=== PATIENT | female | born 1995 | race Caucasian/White ===

== ENCOUNTER 2017-06-11 02:24 | Observation (INO) | payer SELFPAY ==
[~2017-06-11] VITALS: Ht 162.6 cm; Wt 61.4 kg
[~2017-06-11 02:24] MED LIST: APIX5TAB PO; HYDR-3516 PO
[2017-06-11 02:26] VITALS: BP 119/77; PULSE 84; RESP 16; TEMP 98.1; O2SAT 100
[2017-06-11] MEDS ORDERED: MORPHINE SULFATE 4 MG/ML INJ IV PUSH ONE (02:45)
[2017-06-11 03:07] LABS: AUTOMATED NEUTROPHIL # 3.9 TH/MM3 (1.8-7.7); BASOPHIL % 0.5 % (0.0-2.0); EOSINOPHIL # 0.1 TH/MM3 (0-0.4); EOSINOPHIL % 1.4 % (0.0-4.0); HEMO FLAGS DIFF FINAL; LYMPHOCYTE # 3.4 TH/MM3 (1.0-4.8); MEAN CELL VOLUME 86.1 FL (80.0-100.0); MEAN CORPUSCULAR HEMOGLOBIN 28.7 PG (27.0-34.0); MEAN CORPUSCULAR HGB CONC 33.3 % (32.0-36.0); MONO % 7.3 % (0.0-8.0); NEUT % 48.8 % (16.0-70.0); PLATELET COUNT 284 TH/MM3 (150-450); RED BLOOD COUNT 3.94 MIL/MM3 (4.00-5.30); RED CELL DISTRIBUTION WIDTH 13.3 % (11.6-17.2)
[2017-06-11 03:24] LABS: APTT (PATIENT) 28.9 SEC (24.3-30.1); PROTHROMBIN TIME - PATIENT 10.6 SEC (9.8-11.6)
[2017-06-11 03:43] LABS: ALT (GPT) 22 U/L (10-53); ANION GAP 7 MEQ/L (5-15); AST (GOT) 17 U/L (15-37); BICARBONATE 26.1 MEQ/L (21.0-32.0); BLOOD UREA NITROGEN 12 MG/DL (7-18); CHLORIDE 105 MEQ/L (98-107); GLOMERULAR FILTRATION RATE 117 ML/MIN (>89); POTASSIUM 3.7 MEQ/L (3.5-5.1); SODIUM (NA) 138 MEQ/L (136-145)
[2017-06-11 03:46] LABS: ALKALINE PHOSPHATASE 64 U/L (45-117); TOTAL BILIRUBIN ADULT 0.2 MG/DL (0.2-1.0)
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
--- NOTE | 2017-06-11 04:11 | RADRPT ---
EXAM DATE/TIME: 06/11/2017 03:21 [place] COMPARISON: No previous studies available for comparison. INDICATIONS : Right leg swelling. MEDICAL HISTORY : Anticoagulant therapy. Asthma. Pulmonary embolism. Colby-danlos syndrome. SURGICAL HISTORY : None. ENCOUNTER: Initial ACUITY: 2 months PAIN SCORE: 4/10 LOCATION: Right leg. TECHNIQUE: Venous ultrasound of the leg was performed from the inguinal ligament to the proximal calf. Real-luis e, color Doppler and spectral tracing, compression and augmentation techniques were used. FINDINGS: There is normal compressibility of the deep venous system from the inguinal region to the proximal ca lf. No echogenic clot is seen in the lumen of the common femoral, femoral, popliteal, and posterior tibial veins. There is a normal response of the venous system to proximal and distal augmentation an d respiration. CONCLUSION: Negative exam. No sonographic or Doppler findings of deep venous thrombosis. Melo Duong MD on June 11, 2017 at 4:09 Board Certified Radiologist. This report was verified electronically.
[2017-06-11] MEDS ORDERED: BISACODYL 10 MG SUPP RECTAL PRN (05:15)
[2017-06-11] MEDS ORDERED: ONDANSETRON HCL 4 MG/2 ML VIAL IVP PRN (05:15)
[2017-06-11] MEDS ORDERED: SENNOSIDES 8.6 MG TAB PO PRN (05:15)
[2017-06-11] MEDS ORDERED: ACETAMINOPHEN/HYDROcodone 325 MG/5 MG TAB PO PRN (05:15)
[2017-06-11] MEDS ORDERED: SODIUM CHLORIDE 0.9% FLUSH 10 ML FLUSH IV FLUSH PRN (05:15)
[2017-06-11] MEDS ORDERED: MAGNESIUM HYDROXIDE SUSP 30 ML CUP PO PRN (05:15)
[2017-06-11] MEDS ORDERED: MORPHINE SULFATE 4 MG/ML INJ IV PUSH PRN (05:15)
[2017-06-11] MEDS ORDERED: ACETAMINOPHEN 325 MG TAB PO PRN (05:15)
[2017-06-11] MEDS ORDERED: LACTULOSE SYRUP 20 GM/30 ML CUP PO PRN (05:15)
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
[2017-06-11 07:25] VITALS: BP 103/59; PULSE 68; RESP 15; TEMP 98.4; O2SAT 100
[2017-06-11] MEDS ORDERED: APIXABAN 5 MG TABLET PO SCH (09:00)
[2017-06-11] MEDS ORDERED: DOCUSATE SODIUM 50 MG/SENNA 8.6 MG TAB PO SCH (09:00)
[2017-06-11] MEDS ORDERED: SODIUM CHLORIDE 0.9% FLUSH 10 ML FLUSH IV FLUSH SCH (09:00)
--- NOTE | 2017-06-11 09:10 | EKG ---
Date Performed: 06/11/2017 Time Performed: 02:33:10 PTAGE: 21 years EKG: Sinus rhythm NORMAL ECG NO PREVIOUS TRACING DOCTOR: Cornelio Simpson Interpretating Date/Time 06/11/2017 09:08:07
[2017-06-11 10:15] VITALS: BP 112/56; PULSE 80; RESP 15; TEMP 98.3; O2SAT 100
--- NOTE | 2017-06-11 11:52 | MB ---
cc: USAMA MORENO DATE OF CONSULTATION: 06/11/2017. REASON FOR CONSULTATION: Right leg swelling. Evaluation for compartment syndrome. HISTORY OF PRESENT ILLNESS: 21-year-old female with past history of Colby-Danlos Syndrome and history of a right calf muscle tear approximately two months ago. From this injury she sustained a DVT and pulmonary embolism. She is currently on Eliquis. She had a trip and fall injury yesterday while ambulating on crutches with increased pain and swelling in the right calf. She developed subsequently a hematoma. She initially went to [facility] and I was contacted by the emergency room physician there as he had concerns of possible development of compartment syndrome. He requested a transfer to [facility] for monitoring and evaluation to which I agreed. The patient has been transferred to the [facility] and is currently in the holding pod under surveillance at this point. She states the swelling of her calf has stabilized since the injury and has not significantly worsened. She currently denies numbness or tingling of her toes. PAST MEDICAL HISTORY: 1. Colby-Danlos Syndrome. 2. History of a right calf muscle tear. 3. History of DVT. 4. Pulmonary embolism. ALLERGIES: 1. ALBUTEROL. 2. AZITHROMYCIN. MEDICATIONS: 1. Eliquis. FAMILY HISTORY: Reviewed. No diabetes or heart disease. SOCIAL HISTORY: Nonsmoker and non-drinker. Does not use drugs. REVIEW OF SYSTEMS: A twelve-point review of systems is negative other than the history of present illness. PHYSICAL EXAMINATION: VITAL SIGNS: Temperature 98, pulse 84, respirations 16, blood pressure 119/77. GENERAL: In general, the patient is awake and alert and lying in bed in no acute distress. HEAD, EYES, EARS, NOSE, THROAT: Normocephalic and atraumatic. Pupils round and reactive to light. Extraocular muscles intact. NECK: The neck is supple. LUNGS: Clear. HEART: Regular rate and rhythm. ABDOMEN: Abdomen soft and nontender. EXTREMITIES: Right leg has slight swelling of the calf. Her compartments are soft. She can flex and extend her ankles actively as well as passive examination without evidence of significant pain. She has 2+ dorsalis pedis pulse and 2+ posterior tibialis pulses. Sensation intact distally. IMPRESSION: 1. A 21-year-old female with history of Colby-Danlos Syndrome, history of right calf muscle tear with DVT and pulmonary embolism on Eliquis. She had a fall yesterday with increased pain, swelling, bruising, ecchymosis, hematoma of the right calf but no evidence of compartment syndrome. Of note, a Doppler examination is negative for DVT. PLAN: I discussed the diagnosis with the patient. I would recommend discharge planning, ice, elevation, protective weightbearing status with crutches. All questions have been answered. MD ANNE MARIE Severino/ANDREW /9:28 AM /11:37 AM
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
== END 2017-06-11 13:46 | disposition home or self-care (01) ==
LOC: NEPC 02:24 → NEDA 05:08 → NEPHCDU 06:38
PROVIDERS: ADMIT Internal Medicine; ATTEND Internal Medicine
DX: I82.4Z1 Acute embolism and thrombosis of unspecified deep veins of right distal lower extremity (principal); Q79.6 Ehlers-Danlos syndromes; J45.909 Unspecified asthma, uncomplicated; Z79.01 Long term (current) use of anticoagulants
CPT/HCPCS: 80053; 85025; 85610; 85730; 93005; 93971; 96374; 99285; G0378; J2270; 99281

== ENCOUNTER 2017-07-21 20:56 | Observation (INO) | payer OTHER ==
[~2017-07-21] VITALS: Ht 162.6 cm; Wt 60.0 kg
[2017-07-21 20:57] VITALS: BP 134/75; PULSE 98; RESP 16; TEMP 98; O2SAT 100
[2017-07-21 21:25] VITALS: BP 133/77; PULSE 101; RESP 16; O2SAT 97
[2017-07-21] MEDS ORDERED: MULTTAB67 PO (21:25)
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
[2017-07-21] MEDS ORDERED: SODIUM CHLORIDE 0.9% FLUSH 10 ML FLUSH IV FLUSH PRN ×2 (22:00→23:45)
[2017-07-21 22:50] LABS: BILIRUBIN, URINE NEG (NEG); BLOOD, URINE NEG (NEG); GLUCOSE,URINE NEG (NEG); KETONE, URINE NEG (NEG); NITRITE,URINE NEG (NEG); URINE COLOR COLORLESS (YELLW/STRAW); URINE LEUKOCYTE ESTERASE NEG (NEG)
[2017-07-21 22:54] LABS: AUTOMATED NEUTROPHIL # 3.2 TH/MM3 (1.8-7.7); BASOPHIL % 0.5 % (0.0-2.0); EOSINOPHIL # 0.1 TH/MM3 (0-0.4); EOSINOPHIL % 1.4 % (0.0-4.0); HEMATOCRIT 34.8 % (35.0-46.0); HEMOGLOBIN 11.5 GM/DL (11.6-15.3); LYMPHOCYTE # 2.2 TH/MM3 (1.0-4.8); MEAN CELL VOLUME 86.2 FL (80.0-100.0); MEAN CORPUSCULAR HEMOGLOBIN 28.6 PG (27.0-34.0); MEAN CORPUSCULAR HGB CONC 33.2 % (32.0-36.0); MONO % 8.9 % (0.0-8.0); MONOCYTE # 0.5 TH/MM3 (0-0.9); NEUT % 53.2 % (16.0-70.0); PLATELET COUNT 264 TH/MM3 (150-450); RED BLOOD COUNT 4.03 MIL/MM3 (4.00-5.30); RED CELL DISTRIBUTION WIDTH 13.6 % (11.6-17.2)
[2017-07-21 22:58] LABS: PROTHROMBIN TIME - PATIENT 11.1 SEC (9.8-11.6)
[2017-07-21 23:07] LABS: ALBUMIN 3.9 GM/DL (3.4-5.0); ALT (GPT) 22 U/L (10-53); AST (GOT) 20 U/L (15-37); BICARBONATE 26.9 MEQ/L (21.0-32.0); BLOOD UREA NITROGEN 10 MG/DL (7-18); CALCIUM 8.7 MG/DL (8.5-10.1); CHLORIDE 105 MEQ/L (98-107); CREATININE 0.62 MG/DL (0.50-1.00); GLOMERULAR FILTRATION RATE 122 ML/MIN (>89); GLUCOSE,RANDOM 91 MG/DL (74-106); LIPASE 157 U/L (73-393); SODIUM (NA) 139 MEQ/L (136-145)
[2017-07-21 23:09] LABS: ALKALINE PHOSPHATASE 70 U/L (45-117); TOTAL BILIRUBIN ADULT 0.2 MG/DL (0.2-1.0); TOTAL PROTEIN 7.9 GM/DL (6.4-8.2)
--- NOTE | 2017-07-21 23:44 | HHI.HP ---
[facility] No Primary Care Physician Admission Diagnosis gi bleed on eliquis Diagnoses: (1) Rectal bleeding Diagnosis: Principal (2) H/O deep venous thrombosis Diagnosis: Principal (3) Hypokalemia (4) Colby-Danlos syndrome Diagnosis: Principal Travel History International Travel<30 Days: No Contact w/Intl Traveler <30 Da: No Traveled to Known Affected Are: No History of Present Illness This is a 22-year-old female with a PMH of Colby-Danlos Syndrome, Asthma and h/ o DVT on Eliquis who presented to the ER w/ complaints of rectal bleeding. States has been having abdominal pain x2-3 days, intermittent, no associated nausea or vomiting, but reports some diarrhea. Today, w/ bloody bowel movement , noted large amount of blood in toilet and blood after wiping. No h/o similar symptoms. On arrival, BP 1:30/75, HR 98, O2 sat 100% on RA, Afebrile. CBC unremarkable. Hemoglobin 11.5, previously 11.3 on 06/11/17. Chemistry unremarkable except for K+ 3.4. INR 1.0. UA negative. Review of Systems Except as stated in HPI: all other systems reviewed are Neg ROS: 14 point review of systems otherwise negative. Past Family Social History Past Medical History PMH: Colby-Danlos Syndrome, Asthma and h/o DVT on Eliquis Past Surgical History PAST SURGICAL HISTORY: None Allergies: Coded Allergies: albuterol (Verified Allergy, Severe, 07/21/17) azithromycin (Verified Allergy, Severe, 07/21/17) fluticasone (Verified Allergy, Unknown, 07/21/17) Family History PAST FAMILY HISTORY: Reviewed. No h/o DM or CAD Social History PAST SOCIAL HISTORY: Negative for alcohol, tobacco or drugs. Physical Exam Vital Signs Vital Signs Date Time Temp Pulse Resp B/P (MAP) Pulse Ox O2 Delivery O2 Flow Rate FiO2 07/21/17 21:25 101 16 133/77 (95) 97 Room Air 07/21/17 20:57 98.0 98 16 134/75 (94) 100 Room Air Physical Exam PE: GENERAL: Young white female in no acute distress. HEENT: PERRLA, EOMI. No scleral icterus or conjunctival pallor. No lid lag or facial droop. CARDIOVASCULAR: Regular rate and rhythm. No obvious murmurs to auscultation. No chest tenderness to palpation. RESPIRATORY: No obvious rhonchi or wheezing. Clear to auscultation. Breath sounds equal bilaterally. GASTROINTESTINAL: Abdomen soft, mild tenderness to palpation, nondistended. BS normal. MUSCULOSKELETAL: Extremities without clubbing, cyanosis, or edema. No obvious deformities. NEUROLOGICAL: Awake, alert and oriented x4. No focal neurologic deficits. Moving both upper and lower extremities spontaneously. Laboratory Laboratory Tests Test 07/21/17 22:14 07/21/17 22:16 White Blood Count 6.0 Red Blood Count 4.03 Hemoglobin 11.5 Hematocrit 34.8 Mean Corpuscular Volume 86.2 Mean Corpuscular Hemoglobin 28.6 Mean Corpuscular Hemoglobin Concent 33.2 Red Cell Distribution Width 13.6 Platelet Count 264 Mean Platelet Volume 8.0 Neutrophils (%) (Auto) 53.2 Lymphocytes (%) (Auto) 36.0 Monocytes (%) (Auto) 8.9 Eosinophils (%) (Auto) 1.4 Basophils (%) (Auto) 0.5 Neutrophils # (Auto) 3.2 Lymphocytes # (Auto) 2.2 Monocytes # (Auto) 0.5 Eosinophils # (Auto) 0.1 Basophils # (Auto) 0.0 CBC Comment DIFF FINAL Differential Comment Prothrombin Time 11.1 Prothromb Time International Ratio 1.0 Activated Partial Thromboplast Time 30.3 Blood Urea Nitrogen 10 Creatinine 0.62 Random Glucose 91 Total Protein 7.9 Albumin 3.9 Calcium Level 8.7 Alkaline Phosphatase 70 Aspartate Amino Transf (AST/SGOT) 20 Alanine Aminotransferase (ALT/SGPT) 22 Total Bilirubin 0.2 Sodium Level 139 Potassium Level 3.4 Chloride Level 105 Carbon Dioxide Level 26.9 Anion Gap 7 Estimat Glomerular Filtration Rate 122 Lipase 157 Urine Color COLORLESS Urine Turbidity CLEAR Urine pH 6.0 Urine Specific [place] 1.002 Urine Protein NEG Urine Glucose (UA) NEG Urine Ketones NEG Urine Occult Blood NEG Urine Nitrite NEG Urine Bilirubin NEG Urine Urobilinogen LESS THAN 2.0 Urine Leukocyte Esterase NEG Urine RBC LESS THAN 1 Microscopic Urinalysis Comment CULT NOT INDICATED Result Diagram: 07/21/17221307/21/172213 Caprini VTE Risk Assessment Caprini VTE Risk Assessment: Mod/High Risk (score >= 2) Caprini Risk Assessment Model Point Value = 1 Point Value = 2 Point Value = 3 Point Value = 5 Age 41-60 Minor surgery BMI > 25 kg/m2 Swollen legs Varicose veins or History of unexplained or recurrent spontaneous Oral contraceptives or hormone replacement Sepsis (< 1 month) Serious lung disease, including pneumonia (< 1 month) Abnormal pulmonary function Acute myocardial infarction Congestive heart failure (< 1 month) History of inflammatory bowel disease Medical patient at bed rest Age 61-74 Arthroscopic surgery Major open surgery (> 45 min) Laparoscopic surgery (> 45 min) Malignancy Confined to bed (> 72 hours) Immobilizing plaster cast Central venous access Age >= 75 History of VTE Family history of VTE Factor V Leiden Prothrombin [id number] Lupus anticoagulant Anticardiolipin antibodies Elevated serum homocysteine Heparin-induced thrombocytopenia Other congenital or acquired thrombophilia Stroke (< 1 month) Elective arthroplasty Hip, pelvis, or leg fracture Acute spinal cord injury (< 1 month) Prophylaxis Regimen Total Risk Factor Score Risk Level Prophylaxis Regimen 0-1 Low Early ambulation 2 Moderate Order ONE of the following: *Sequential Compression Device (SCD) *Heparin 5000 units SQ BID 3-4 Higher Order ONE of the following medications: *Heparin 5000 units SQ TID *Enoxaparin/Lovenox 40 mg SQ daily (WT < 150 kg, CrCl > 30 mL/min) *Enoxaparin/Lovenox 30 mg SQ daily (WT < 150 kg, CrCl > 10-29 mL/min) *Enoxaparin/Lovenox 30 mg SQ BID (WT < 150 kg, CrCl > 30 mL/min) AND/OR *Sequential Compression Device (SCD) 5 or more Highest Order ONE of the following medications: *Heparin 5000 units SQ TID (Preferred with Epidurals) *Enoxaparin/Lovenox 40 mg SQ daily (WT < 150 kg, CrCl > 30 mL/min) *Enoxaparin/Lovenox 30 mg SQ daily (WT < 150 kg, CrCl > 10-29 mL/min) *Enoxaparin/Lovenox 30 mg SQ BID (WT < 150 kg, CrCl > 30 mL/min) AND *Sequential Compression Device (SCD) Assessment and Plan Problem List: (1) Rectal bleeding ICD Code: K62.5 - Hemorrhage of anus and rectum (2) H/O deep venous thrombosis ICD Code: Z86.718 - Personal history of other venous thrombosis and embolism (3) Hypokalemia ICD Code: E87.6 - Hypokalemia (4) Colby-Danlos syndrome ICD Code: Q79.6 - Colby-Danlos syndrome Assessment and Plan A/P: 1. Rectal Bleeding: c/o abdominal pain x2-3 days w/ occasional diarrhea, now w / acute onset of bloody bowel movement, likely secondary to mild colitis. Hgb stable at 11.5, previously 11.3 on 06/11/17. Repeat Hgb/Hct as on Eliquis. 2. H/o DVT: on Eliquis, will resume if repeat Hgb stable. 3. Hypokalemia: Mild. K+ 3.4. Will recheck and replace as needed. 4. Colby-Danlos Syndrome: Stable. 5. DVT Prophylaxis: On Eliquis 6. Social work for d/c planning as needed. 7. Case discussed w/ ER physician at length. Lolita Silverman MD Jul 21, 2017 23:44
[2017-07-21] MEDS ORDERED: ONDANSETRON HCL 4 MG/2 ML VIAL IVP PRN (23:45)
[2017-07-21] MEDS ORDERED: ACETAMINOPHEN/HYDROcodone 325 MG/5 MG TAB PO PRN (23:45)
[2017-07-21] MEDS ORDERED: SENNOSIDES 8.6 MG TAB PO PRN (23:45)
[2017-07-21] MEDS ORDERED: ACETAMINOPHEN 325 MG TAB PO PRN (23:45)
[2017-07-21] MEDS ORDERED: ACETAMINOPHEN/HYDROcodone 325 MG/10 MG TAB PO PRN (23:45)
[2017-07-21] MEDS ORDERED: BISACODYL 10 MG SUPP RECTAL PRN (23:45)
[2017-07-21] MEDS ORDERED: LACTULOSE SYRUP 20 GM/30 ML CUP PO PRN (23:45)
[2017-07-21] MEDS ORDERED: MAGNESIUM HYDROXIDE SUSP 30 ML CUP PO PRN (23:45)
[2017-07-21] MEDS ORDERED: IOHEXOL 350 MG/ML 10 ML VIAL (for RAD DIAG) IVCONTRAST ONE (23:45)
[2017-07-21 23:58] VITALS: BP 108/66; PULSE 81; RESP 16; O2SAT 100
[2017-07-21 23:59] VITALS: O2SAT 100
[2017-07-22 01:03] VITALS: BP 113/67; PULSE 79; RESP 18; TEMP 98.2; O2SAT 100
[2017-07-22 03:39] VITALS: BP 104/52; PULSE 82; RESP 18; TEMP 98.2; O2SAT 97
--- NOTE | 2017-07-22 05:58 | PD ---
Data Data Last Documented VS Vital Signs Date Time Temp Pulse Resp B/P (MAP) Pulse Ox O2 Delivery O2 Flow Rate FiO2 07/21/17 21:25 101 16 133/77 (95) 97 Room Air 07/21/17 20:57 98.0 Orders Orders Complete Blood Count With Diff (07/21/17 21:53) Comprehensive Metabolic Panel (07/21/17 21:53) Lipase (07/21/17 21:53) Prothrombin Time / Inr (Pt) (07/21/17 21:53) Act Partial Throm Time (Ptt) (07/21/17 21:53) Urinalysis - C+S If Indicated (07/21/17 21:53) Iv Access Insert/Monitor (07/21/17 21:53) Ecg Monitoring (07/21/17 21:53) Oximetry (07/21/17 21:53) Sodium Chloride 0.9% Flush (Ns Flush) (07/21/17 22:00) Admit Order (Ed Use Only) (07/21/17 23:43) Labs Laboratory Tests Test 07/21/17 22:14 07/21/17 22:16 White Blood Count 6.0 TH/MM3 Red Blood Count 4.03 MIL/MM3 Hemoglobin 11.5 GM/DL Hematocrit 34.8 % Mean Corpuscular Volume 86.2 FL Mean Corpuscular Hemoglobin 28.6 PG Mean Corpuscular Hemoglobin Concent 33.2 % Red Cell Distribution Width 13.6 % Platelet Count 264 TH/MM3 Mean Platelet Volume 8.0 FL Neutrophils (%) (Auto) 53.2 % Lymphocytes (%) (Auto) 36.0 % Monocytes (%) (Auto) 8.9 % Eosinophils (%) (Auto) 1.4 % Basophils (%) (Auto) 0.5 % Neutrophils # (Auto) 3.2 TH/MM3 Lymphocytes # (Auto) 2.2 TH/MM3 Monocytes # (Auto) 0.5 TH/MM3 Eosinophils # (Auto) 0.1 TH/MM3 Basophils # (Auto) 0.0 TH/MM3 CBC Comment DIFF FINAL Differential Comment Prothrombin Time 11.1 SEC Prothromb Time International Ratio 1.0 RATIO Activated Partial Thromboplast Time 30.3 SEC Blood Urea Nitrogen 10 MG/DL Creatinine 0.62 MG/DL Random Glucose 91 MG/DL Total Protein 7.9 GM/DL Albumin 3.9 GM/DL Calcium Level 8.7 MG/DL Alkaline Phosphatase 70 U/L Aspartate Amino Transf (AST/SGOT) 20 U/L Alanine Aminotransferase (ALT/SGPT) 22 U/L Total Bilirubin 0.2 MG/DL Sodium Level 139 MEQ/L Potassium Level 3.4 MEQ/L Chloride Level 105 MEQ/L Carbon Dioxide Level 26.9 MEQ/L Anion Gap 7 MEQ/L Estimat Glomerular Filtration Rate 122 ML/MIN Lipase 157 U/L Urine Color COLORLESS Urine Turbidity CLEAR Urine pH 6.0 Urine Specific [place] 1.002 Urine Protein NEG mg/dL Urine Glucose (UA) NEG mg/dL Urine Ketones NEG mg/dL Urine Occult Blood NEG Urine Nitrite NEG Urine Bilirubin NEG Urine Urobilinogen LESS THAN 2.0 MG/DL Urine Leukocyte Esterase NEG Urine RBC LESS THAN 1 /hpf Microscopic Urinalysis Comment CULT NOT INDICATED MDM Supervised Visit with YAMEL: Yes Narrative Course The history, exam, and medical decision-making in the associated midlevel provider note were completed with my assistance. I reviewed and agree with the findings presented. I attest that I had a [id number] encounter with the patient on the same day, and personally performed and documented my assessment and findings in the medical record. *My assessment and Findings: This is a 22-year-old female who is on Eliquis for history of DVT who presents to the emergency department with diarrhea and blood in her stool. She was placed on a monitor and an IV was established. She is mildly tachycardic. Labs are reassuring. Patient will be placed in observation for serial hemoglobins in the setting of being on anticoagulation. I suspect her bleeding is just secondary to viral syndrome. Shahnaz Martinez MD Jul 22, 2017 05:58
[2017-07-22 07:30] LABS: AUTOMATED NEUTROPHIL # 3.2 TH/MM3 (1.8-7.7); BASOPHIL % 0.4 % (0.0-2.0); EOSINOPHIL # 0.1 TH/MM3 (0-0.4); EOSINOPHIL % 1.4 % (0.0-4.0); HEMATOCRIT 30.8 % (35.0-46.0); HEMOGLOBIN 10.4 GM/DL (11.6-15.3); LYMPH % 35.9 % (9.0-44.0); LYMPHOCYTE # 2.1 TH/MM3 (1.0-4.8); MEAN CELL VOLUME 86.1 FL (80.0-100.0); MEAN CORPUSCULAR HEMOGLOBIN 29.2 PG (27.0-34.0); MEAN CORPUSCULAR HGB CONC 33.9 % (32.0-36.0); MEAN PLATELET VOLUME 7.7 FL (7.0-11.0); MONO % 9.1 % (0.0-8.0); MONOCYTE # 0.5 TH/MM3 (0-0.9); NEUT % 53.2 % (16.0-70.0); PLATELET COUNT 227 TH/MM3 (150-450); RED BLOOD COUNT 3.58 MIL/MM3 (4.00-5.30); RED CELL DISTRIBUTION WIDTH 13.6 % (11.6-17.2)
[2017-07-22 07:39] VITALS: BP 105/59; PULSE 78; RESP 16; TEMP 97.7; O2SAT 99
[2017-07-22 08:02] LABS: ALBUMIN 3.2 GM/DL (3.4-5.0); ALKALINE PHOSPHATASE 53 U/L (45-117); ALT (GPT) 21 U/L (10-53); AST (GOT) 14 U/L (15-37); BICARBONATE 23.9 MEQ/L (21.0-32.0); BLOOD UREA NITROGEN 7 MG/DL (7-18); CALCIUM 8.9 MG/DL (8.5-10.1); CHLORIDE 108 MEQ/L (98-107); CREATININE 0.56 MG/DL (0.50-1.00); GLOMERULAR FILTRATION RATE 135 ML/MIN (>89); GLUCOSE,RANDOM 88 MG/DL (74-106); SODIUM (NA) 139 MEQ/L (136-145); TOTAL BILIRUBIN ADULT 0.1 MG/DL (0.2-1.0); TOTAL PROTEIN 6.4 GM/DL (6.4-8.2)
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
[2017-07-22] MEDS: SODIUM CHLORIDE 0.9% FLUSH 10 ML FLUSH IV FLUSH SCH ×2 (10:00→23:11)
[2017-07-22] MEDS: PANTOPRAZOLE SOD 40 MG DELAYED RELEASE TAB PO SCH (10:00)
[2017-07-22] MEDS: DOCUSATE SODIUM 50 MG/SENNA 8.6 MG TAB PO SCH ×2 (10:00→21:00)
[2017-07-22] MEDS: SODIUM CHLOR 0.9% 1000 ML INJ 1,000 ML IV SCH ×3 (10:01→22:36)
[2017-07-22] MEDS: MULTIVITAMIN TAB PO SCH (10:01)
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
[2017-07-22] MEDS ORDERED: DIATRIZOATE MEGLUM/DIATRIZOATE SOD 9 ML CUP PO ONE (11:15)
[2017-07-22 11:20] VITALS: BP 110/64; PULSE 82; RESP 18; TEMP 97.9; O2SAT 99
[2017-07-22 13:32] LABS: HEMOGLOBIN 10.7 GM/DL (11.6-15.3)
--- NOTE | 2017-07-22 15:44 | RADRPT ---
EXAM DATE/TIME: 07/22/2017 15:18 [facility] COMPARISON: No previous studies available for comparison. INDICATIONS : Rectal bleeding and abdominal pain. IV CONTRAST: 97 cc Omnipaque 350 (iohexol) IV ORAL CONTRAST: No oral contrast ingested. RADIATION DOSE: 6.64 CTDIvol (mGy) MEDICAL HISTORY : Deep venous thrombosis. Ehler's-danlos syndrome. SURGICAL HISTORY : None. ENCOUNTER: Initial ACUITY: 3 days PAIN SCALE: 4/10 LOCATION: Bilateral lower quadrant TECHNIQUE: Volumetric scanning of the abdomen and pelvis was performed. Using automated exposure control and ad justment of the mA and/or kV according to patient size, radiation dose was kept as low as reasonably achievable to obtain optimal diagnostic quality images. DICOM format image data is available electro nically for review and comparison. FINDINGS: LOWER LUNGS: The visualized lower lungs are clear. LIVER: Homogeneous density without lesion. There is no dilation of the biliary tree. No calcified gallston es. SPLEEN: Normal size without lesion. PANCREAS: Within normal limits. KIDNEYS: Normal in size and shape. There is no mass, stone or hydronephrosis. ADRENAL GLANDS: Within normal limits. VASCULAR: There is no aortic aneurysm. BOWEL/MESENTERY: The stomach, small bowel, and colon demonstrate no acute abnormality. There is no free intraperitone al air. A small amount of free fluid deep within the cul-de-sac. ABDOMINAL WALL: Within normal limits. RETROPERITONEUM: There is no lymphadenopathy. BLADDER: No wall thickening or mass. REPRODUCTIVE: Within normal limits. INGUINAL: There is no lymphadenopathy or hernia. MUSCULOSKELETAL: Within normal limits for patient age. CONCLUSION: 1. No acute abnormality to explain the patient's pain. 2. Small amount of free fluid within the cul-de-sac. Oskar Niño Jr., MD on July 22, 2017 at 15:36 Board Certified Radiologist. This report was verified electronically.
[2017-07-22 16:07] VITALS: BP 98/56; PULSE 69; RESP 16; TEMP 98.3; O2SAT 100
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
[2017-07-22 22:09] VITALS: BP 100/56; PULSE 84; RESP 18; TEMP 98.4; O2SAT 100
[2017-07-23 01:09] VITALS: BP 108/53; PULSE 83; RESP 18; TEMP 98.8; O2SAT 98
[2017-07-23 03:54] VITALS: BP 101/49; PULSE 74; RESP 18; TEMP 98.4; O2SAT 97
[2017-07-23 07:35] VITALS: BP 94/54; PULSE 78; RESP 16; TEMP 98.3; O2SAT 98
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
[2017-07-23] MEDS ORDERED: LOPERAMIDE HCL 2 MG CAP PO ONE (08:15)
[2017-07-23] MEDS: SODIUM CHLORIDE 0.9% FLUSH 10 ML FLUSH IV FLUSH SCH ×2 (09:00→21:00)
[2017-07-23] MEDS: DOCUSATE SODIUM 50 MG/SENNA 8.6 MG TAB PO SCH ×2 (09:00→21:00)
[2017-07-23] MEDS: MULTIVITAMIN TAB PO SCH (09:49)
[2017-07-23] MEDS: PANTOPRAZOLE SOD 40 MG DELAYED RELEASE TAB PO SCH (09:50)
[2017-07-23] MEDS: SODIUM CHLOR 0.9% 1000 ML INJ 1,000 ML IV SCH ×2 (11:06→23:36)
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
[2017-07-23 11:58] VITALS: BP 91/54; PULSE 76; RESP 16; TEMP 98.4; O2SAT 95
--- NOTE | 2017-07-23 13:25 | HHI.GIFU ---
Subjective Remarks Patient is resting in bed, still with complaints of diarrhea, she is having multiple loose stools a day, no more bleeding reported, endorses nausea, but no vomiting. Still with lower abd pain. Objective Vitals I&O Vital Signs Date Time Temp Pulse Resp B/P (MAP) Pulse Ox O2 Delivery O2 Flow Rate FiO2 07/23/17 11:58 98.4 76 16 91/54 (66) 95 07/23/17 07:35 98.3 78 16 94/54 (67) 98 07/23/17 03:54 98.4 74 18 101/49 (66) 97 07/23/17 01:09 98.8 83 18 108/53 (71) 98 07/22/17 22:09 98.4 84 18 100/56 (71) 100 07/22/17 16:07 98.3 69 16 98/56 (70) 100 I/O 07/22/17 07/22/17 07/22/17 07/23/17 07/23/17 07/23/17 07:00 15:00 23:00 07:00 15:00 23:00 Intake Total 300 ml Output Total 1100 ml 150 ml 600 ml 300 ml Balance -1100 ml 150 ml -600 ml -300 ml Intake IV Total 300 ml Output Urine Total 1100 ml 600 ml 300 ml Stool Total 150 ml # Voids 2 # Bowel Movements 1 Laboratory Laboratory Tests Test 07/22/17 20:40 Stool C. difficile Toxin (PCR) NEGATIVE Stl C. difficile Toxin Epiderm 027 PRESUMPTIVE NEGATIVE Date/Time Source Procedure Growth Status 07/22/17 20:40 Stool Stool Stool Pus (MEENA) - Final MODERATE WBC'S Complete Imaging Last Impressions Abdomen/Pelvis CT 07/22/17 0000 Signed Impressions: Service Date/Time: Saturday, July 22, 2017 15:18 - CONCLUSION: 1. No acute abnormality to explain the patient's pain. 2. Small amount of free fluid within the cul-de-sac. Oskar Niño Jr., MD Physical Exam HEENT: normocephalic; atraumatic; no jaundice. NECK: Neck is supple, no JVD, no lymphadenopathy. CHEST: Chest is clear to auscultation and percussion. CARDIAC: Regular rate and rhythm with no murmur gallop or rubs. ABDOMEN: Soft, nondistended, mild lower abd tenderness; no hepatosplenomegaly; bowel sounds are present in all four quadrants. EXTREMITIES: No clubbing, cyanosis, or edema. SKIN: Normal; no rash; no jaundice. 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 Assessment and Plan Plan - Diarrhea, with blood in stool- 2 episodes of significant amount of rectal bleeding day of admission, but no more Still with diarrhea, stools negative for C-diff, hgb stable, moderate WBC in stools. Eliquis on hold - Lower abdominal pain- CT negative for any acute abnormalities - Anemia- secondary to acute GI bleed, stable, PPI - DVT- resolved. Recent US of leg normal. Clot has resolved in lung as well. Eliquis on hold Plan: - GLORIA - EGD/colonoscopy on Tuesday - Clears tomorrow - Miralax prep tomorrow - Obtain consents - NPO mn - Monitor hh - Notify GI for active bleed - Cont. PPI - Supportive care - Patient seen and examined by Dr. Davis and myself and this note is written on his behalf. Mitch Mckeno Jul 23, 2017 13:25
[2017-07-23 13:40] LABS: HEMATOCRIT 37.7 % (35.0-46.0); HEMOGLOBIN 12.7 GM/DL (11.6-15.3)
[2017-07-23 13:44] LABS: AUTOMATED NEUTROPHIL # 3.8 TH/MM3 (1.8-7.7); BASOPHIL % 0.4 % (0.0-2.0); EOSINOPHIL # 0.1 TH/MM3 (0-0.4); EOSINOPHIL % 0.9 % (0.0-4.0); HEMOGLOBIN 12.4 GM/DL (11.6-15.3); LYMPH % 31.7 % (9.0-44.0); MEAN CELL VOLUME 86.4 FL (80.0-100.0); MEAN CORPUSCULAR HEMOGLOBIN 28.8 PG (27.0-34.0); MEAN CORPUSCULAR HGB CONC 33.4 % (32.0-36.0); MONO % 5.1 % (0.0-8.0); MONOCYTE # 0.3 TH/MM3 (0-0.9); NEUT % 61.9 % (16.0-70.0); PLATELET COUNT 256 TH/MM3 (150-450); RED BLOOD COUNT 4.28 MIL/MM3 (4.00-5.30); RED CELL DISTRIBUTION WIDTH 13.6 % (11.6-17.2); WHITE BLOOD COUNT 6.2 TH/MM3 (4.0-11.0)
[2017-07-23] MEDS ORDERED: POLYETHYLENE GLYCOL 17 GM PKG PO ONE (16:00)
[2017-07-23 16:01] VITALS: BP 96/61; PULSE 80; RESP 16; TEMP 97.7; O2SAT 99
[2017-07-23 22:26] VITALS: BP 96/58; PULSE 78; RESP 17; TEMP 98; O2SAT 99
[2017-07-24] VITALS: BP 98/53; PULSE 83; RESP 18; TEMP 97.6; O2SAT 98
[2017-07-24 04:00] VITALS: BP 88/54; PULSE 69; RESP 16; TEMP 97.2; O2SAT 97
[2017-07-24] MEDS: MULTIVITAMIN TAB PO SCH (09:25)
[2017-07-24] MEDS: SODIUM CHLORIDE 0.9% FLUSH 10 ML FLUSH IV FLUSH SCH ×2 (09:25→21:41)
[2017-07-24] MEDS: DOCUSATE SODIUM 50 MG/SENNA 8.6 MG TAB PO SCH ×2 (09:25→21:41)
[2017-07-24] MEDS: PANTOPRAZOLE SOD 40 MG DELAYED RELEASE TAB PO SCH (09:25)
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
--- NOTE | 2017-07-24 11:14 | HHI.GIFU ---
Subjective Remarks Resting in bed, in no apparent distress. Reports lower abdominal discomfort. Tolerating diet. Objective Vitals I&O Vital Signs Date Time Temp Pulse Resp B/P (MAP) Pulse Ox O2 Delivery O2 Flow Rate FiO2 07/24/17 04:00 97.2 69 16 88/54 (65) 97 07/24/17 00:00 97.6 83 18 98/53 (68) 98 07/23/17 22:26 98.0 78 17 96/58 (71) 99 07/23/17 16:01 97.7 80 16 96/61 (73) 99 07/23/17 11:58 98.4 76 16 91/54 (66) 95 I/O 07/23/17 07/23/17 07/23/17 07/24/17 07/24/17 07/24/17 07:00 15:00 23:00 07:00 15:00 23:00 Intake Total 600 ml 360 ml Output Total 600 ml 300 ml 500 ml Balance -600 ml -300 ml 600 ml -140 ml Intake Oral 600 ml 360 ml Output Urine Total 600 ml 300 ml 500 ml # Voids 2 # Bowel Movements 0 Laboratory Laboratory Tests Test 07/23/17 13:10 White Blood Count 6.2 Red Blood Count 4.28 Hemoglobin 12.7 Hematocrit 37.7 Mean Corpuscular Volume 86.4 Mean Corpuscular Hemoglobin 28.8 Mean Corpuscular Hemoglobin Concent 33.4 Red Cell Distribution Width 13.6 Platelet Count 256 Mean Platelet Volume 8.0 Neutrophils (%) (Auto) 61.9 Lymphocytes (%) (Auto) 31.7 Monocytes (%) (Auto) 5.1 Eosinophils (%) (Auto) 0.9 Basophils (%) (Auto) 0.4 Neutrophils # (Auto) 3.8 Lymphocytes # (Auto) 2.0 Monocytes # (Auto) 0.3 Eosinophils # (Auto) 0.1 Basophils # (Auto) 0.0 CBC Comment DIFF FINAL Differential Comment Date/Time Source Procedure Growth Status 07/22/17 20:40 Stool Stool Stool Pus (MEENA) - Final MODERATE WBC'S Complete Imaging Last Impressions Abdomen/Pelvis CT 07/22/17 0000 Signed Impressions: Service Date/Time: Saturday, July 22, 2017 15:18 - CONCLUSION: 1. No acute abnormality to explain the patient's pain. 2. Small amount of free fluid within the cul-de-sac. Oskar Niño Jr., MD Physical Exam HEENT: Normocephalic; atraumatic; no jaundice. NECK: Neck is supple. CHEST: CTA CARDIAC: RRR ABDOMEN: Soft, nondistended, mild lower abdominal TTP; no hepatosplenomegaly; bowel sounds are present in all four quadrants. EXTREMITIES: No clubbing, cyanosis, or edema. SKIN: Normal; no rash; no jaundice. DENTAL LABORATORY TECHNICIAN: No focal deficits; alert and oriented times three. Assessment and Plan Plan ASSESSMENT: - Gastroenteritis, with diarrhea and bright red blood in stool- 2 episodes of significant amount of rectal bleeding day of admission, but no more episodes during admission. Continues to have diarrhea, but improving. On Imodium. Stools negative for C-diff. Moderate WBC in stools. HH stable. Eliquis on hold. - Lower abdominal pain- CT negative for any acute abnormalities - Anemia- secondary to acute GI bleed, stable, PPI - H/o DVT/PE, resolved. Recent US of leg normal. Eliquis on hold. Hematology following. - Colby-Danlos Syndrome, chronic. Stable. PLAN: - EGD/colonoscopy on Tuesday - Clears liquid diet today - Bowel prep today - NPO at [facility] - Monitor HH, transfuse as necessary - Notify GI of active bleeding - Cont. PPI - Supportive care - Further recommendations to follow based on results of above. Patient seen and examined by Dr. Davis and myself and this note is written on his behalf. Ally Michel Jul 24, 2017 11:14
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
[2017-07-24] MEDS: SODIUM CHLOR 0.9% 1000 ML INJ 1,000 ML IV SCH (12:06)
[2017-07-24 12:23] VITALS: BP 102/57; PULSE 84; RESP 20; TEMP 97.9; O2SAT 96
[2017-07-24 14:58] VITALS: BP 94/53; PULSE 80; RESP 20; TEMP 97.9; O2SAT 98
[2017-07-24] MEDS ORDERED: SODIUM CHLORID 0.9% 500 ML IV PRN (17:00)
[2017-07-24] MEDS ORDERED: INSULIN HUMAN REGULAR 1,000 UNITS/10 ML VIAL SQ PRN (17:00)
[2017-07-24] MEDS ORDERED: POVIDONE IODINE 5% (ANTISEPSIS KIT) 4 APPLICATIONS EACH NARE PRN (17:00)
[2017-07-24] MEDS ORDERED: METOPROLOL TARTRATE 25 MG TAB PO PRN (17:00)
[2017-07-24] MEDS ORDERED: LACTATED RINGER'S 1000 ML IV PRN (17:00)
[2017-07-24] MEDS ORDERED: CHLORHEXIDINE GLUCONATE 2 % 1 PACK (2 CLOTHS) TOPICAL PRN (17:00)
[2017-07-24 20:07] VITALS: BP 107/65; PULSE 74; RESP 18; TEMP 98.1; O2SAT 98
[2017-07-24] MEDS: POLYETHYLENE GLYCOL 17 GM PKG PO SCH ×4 (21:00→23:00)
[2017-07-25] MEDS: POLYETHYLENE GLYCOL 17 GM PKG PO SCH (00:24)
[2017-07-25] MEDS: SODIUM CHLOR 0.9% 1000 ML INJ 1,000 ML IV SCH ×2 (00:36→13:06)
[2017-07-25 00:40] VITALS: BP 127/77; PULSE 78; RESP 18; TEMP 98; O2SAT 97
[2017-07-25 06:19] LABS: AUTOMATED NEUTROPHIL # 3.7 TH/MM3 (1.8-7.7); BASOPHIL % 0.3 % (0.0-2.0); EOSINOPHIL # 0.1 TH/MM3 (0-0.4); EOSINOPHIL % 1.4 % (0.0-4.0); HEMATOCRIT 33.6 % (35.0-46.0); HEMOGLOBIN 11.4 GM/DL (11.6-15.3); LYMPH % 37.1 % (9.0-44.0); LYMPHOCYTE # 2.5 TH/MM3 (1.0-4.8); MEAN CELL VOLUME 85.3 FL (80.0-100.0); MEAN PLATELET VOLUME 7.4 FL (7.0-11.0); MONO % 7.5 % (0.0-8.0); MONOCYTE # 0.5 TH/MM3 (0-0.9); NEUT % 53.7 % (16.0-70.0); PLATELET COUNT 254 TH/MM3 (150-450); RED BLOOD COUNT 3.95 MIL/MM3 (4.00-5.30); RED CELL DISTRIBUTION WIDTH 13.3 % (11.6-17.2); WHITE BLOOD COUNT 6.8 TH/MM3 (4.0-11.0)
[2017-07-25 06:44] LABS: CREATININE 0.54 MG/DL (0.50-1.00)
[2017-07-25 07:47] VITALS: BP 85/49; PULSE 87; RESP 16; TEMP 98; O2SAT 99
[2017-07-25] MEDS: MULTIVITAMIN TAB PO SCH (08:32)
[2017-07-25] MEDS: DOCUSATE SODIUM 50 MG/SENNA 8.6 MG TAB PO SCH (08:32)
[2017-07-25] MEDS: SODIUM CHLORIDE 0.9% FLUSH 10 ML FLUSH IV FLUSH SCH (08:32)
[2017-07-25] MEDS: PANTOPRAZOLE SOD 40 MG DELAYED RELEASE TAB PO SCH (08:32)
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
--- NOTE | 2017-07-25 11:05 | GIPROC ---
[facility] [address] [facility]. [facility], [address] COLONOSCOPY PROCEDURE REPORT EXAM DATE: 07/25/2017 PATIENT NAME: Barbara Bains MR #: [id number] BIRTHDATE: 1995 ENDOSCOPIST: Marsha Lyon MD ORDER #: [id number] LINER MACHINE OPERATOR HELPER: Ana Layton RN STATUS: inpatient INDICATIONS: The patient is a 22 yr old female here for a colonoscopy due to rectal bleeding, diarrhea PROCEDURE PERFORMED: Colonoscopy with biopsy MEDICATIONS: None and Per Anesthesia. PREP QUALITY: fair PREP TYPE:Other: ESTIMATED BLOOD LOSS: None CONSENT: The patient understands the risks and benefits of the procedure and understands that these risks include, but are not limited to: sedation, allergic reaction, infection, perforation and/or bleeding. Alternative means of evaluation and treatment include, among others: physical exam, x-rays, and/or surgical intervention. The patient elects to proceed with this endoscopic procedure. medical equipment was checked for proper function. Hand hygiene and appropriate measures for infection prevention was taken. After the risks, benefits and alternatives of the procedure were thoroughly explained, Informed consent was verified, confirmed and timeout was successfully executed by the treatment team. A digital exam revealed external hemorrhoids The Pentax [id number] endoscope was introduced through the anus and advanced to the cecum, which was identified by both the appendix and ileocecal valve. The instrument was then slowly withdrawn as the colon was fully examined. COLON FINDINGS: Normal colon-random biopsy right and left colon. Retroflexed views revealed internal hemorrhoids and Retroflexed views revealed small internal hemorrhoids The scope was then completely withdrawn from the patient and the procedure terminated. PROCEDURE WITHDRAWAL TIME:6minutes ADVERSE EVENTS: There were no complications. IMPRESSIONS: 1. Normal colon-random biopsy right and left colon 2. Retroflexed views revealed internal hemorrhoids 3. Retroflexed views revealed small internal hemorrhoids 4. Revealed external hemorrhoids RECOMMENDATIONS: 1. Await biopsy results. Biopsy results will not be ready for 7-10 days. If you don't hear from us in two weeks, call our office for results. 2. Benefiber 2 tsp daily 3. High fiber diet 4. Probiotics from any [facility] or [employer] food store 5. Yearly rectal exams 6. Resume regular/high fiber diet ok to restart anticoagulation from [facility] to dc home from [facility] office in 2 weeks no driving for 23 hrs if discharged home RECALL: Colonoscopy Marsha Lyon MD eSigned: Marsha Lyon MD 07/25/2017 11:05 AM cc: PATIENT NAME: Barbara Bains MR#: [id number]
--- NOTE | 2017-07-25 11:05 | GIPROC ---
[facility] [address] [facility]. [facility], [address] COLONOSCOPY PROCEDURE REPORT EXAM DATE: 07/25/2017 PATIENT NAME: Barbara Bains MR #: [id number] BIRTHDATE: 1995 ENDOSCOPIST: Marsha Lyon MD ORDER #: [id number] CYLINDER DYER: Ana Layton RN STATUS: inpatient INDICATIONS: The patient is a 22 yr old female here for a colonoscopy due to rectal bleeding, diarrhea PROCEDURE PERFORMED: Colonoscopy with biopsy MEDICATIONS: None and Per Anesthesia. PREP QUALITY: fair PREP TYPE:Other: ESTIMATED BLOOD LOSS: None CONSENT: The patient understands the risks and benefits of the procedure and understands that these risks include, but are not limited to: sedation, allergic reaction, infection, perforation and/or bleeding. Alternative means of evaluation and treatment include, among others: physical exam, x-rays, and/or surgical intervention. The patient elects to proceed with this endoscopic procedure. medical equipment was checked for proper function. Hand hygiene and appropriate measures for infection prevention was taken. After the risks, benefits and alternatives of the procedure were thoroughly explained, Informed consent was verified, confirmed and timeout was successfully executed by the treatment team. A digital exam revealed external hemorrhoids The Pentax [id number] endoscope was introduced through the anus and advanced to the cecum, which was identified by both the appendix and ileocecal valve. The instrument was then slowly withdrawn as the colon was fully examined. COLON FINDINGS: Normal colon-random biopsy right and left colon. Retroflexed views revealed internal hemorrhoids and Retroflexed views revealed small internal hemorrhoids The scope was then completely withdrawn from the patient and the procedure terminated. PROCEDURE WITHDRAWAL TIME:6minutes ADVERSE EVENTS: There were no complications. IMPRESSIONS: 1. Normal colon-random biopsy right and left colon 2. Retroflexed views revealed internal hemorrhoids 3. Retroflexed views revealed small internal hemorrhoids 4. Revealed external hemorrhoids RECOMMENDATIONS: 1. Await biopsy results. Biopsy results will not be ready for 7-10 days. If you don't hear from us in two weeks, call our office for results. 2. Benefiber 2 tsp daily 3. High fiber diet 4. Probiotics from any [facility] or [employer] food store 5. Yearly rectal exams 6. Resume regular/high fiber diet ok to restart anticoagulation from [facility] to dc home from [facility] office in 2 weeks no driving for 23 hrs if discharged home RECALL: Colonoscopy Marsha Lyon MD eSigned: Marsha Lyon MD 07/25/2017 11:05 AM cc: PATIENT NAME: Barbara Bains MR#: [id number]
--- NOTE | 2017-07-25 11:05 | GIPROC ---
[facility] [address] [facility]. [facility], [address] COLONOSCOPY PROCEDURE REPORT EXAM DATE: 07/25/2017 PATIENT NAME: Barbara Bains MR #: [id number] BIRTHDATE: 1995 ENDOSCOPIST: Marsha Lyon MD ORDER #: [id number] BUSINESS MAIL ENTRY CLERK: Ana Layton RN STATUS: inpatient INDICATIONS: The patient is a 22 yr old female here for a colonoscopy due to rectal bleeding, diarrhea PROCEDURE PERFORMED: Colonoscopy with biopsy MEDICATIONS: None and Per Anesthesia. PREP QUALITY: fair PREP TYPE:Other: ESTIMATED BLOOD LOSS: None CONSENT: The patient understands the risks and benefits of the procedure and understands that these risks include, but are not limited to: sedation, allergic reaction, infection, perforation and/or bleeding. Alternative means of evaluation and treatment include, among others: physical exam, x-rays, and/or surgical intervention. The patient elects to proceed with this endoscopic procedure. medical equipment was checked for proper function. Hand hygiene and appropriate measures for infection prevention was taken. After the risks, benefits and alternatives of the procedure were thoroughly explained, Informed consent was verified, confirmed and timeout was successfully executed by the treatment team. A digital exam revealed external hemorrhoids The Pentax [id number] endoscope was introduced through the anus and advanced to the cecum, which was identified by both the appendix and ileocecal valve. The instrument was then slowly withdrawn as the colon was fully examined. COLON FINDINGS: Normal colon-random biopsy right and left colon. Retroflexed views revealed internal hemorrhoids and Retroflexed views revealed small internal hemorrhoids The scope was then completely withdrawn from the patient and the procedure terminated. PROCEDURE WITHDRAWAL TIME:6minutes ADVERSE EVENTS: There were no complications. IMPRESSIONS: 1. Normal colon-random biopsy right and left colon 2. Retroflexed views revealed internal hemorrhoids 3. Retroflexed views revealed small internal hemorrhoids 4. Revealed external hemorrhoids RECOMMENDATIONS: 1. Await biopsy results. Biopsy results will not be ready for 7-10 days. If you don't hear from us in two weeks, call our office for results. 2. Benefiber 2 tsp daily 3. High fiber diet 4. Probiotics from any [facility] or [employer] food store 5. Yearly rectal exams 6. Resume regular/high fiber diet ok to restart anticoagulation from [facility] to dc home from [facility] office in 2 weeks no driving for 23 hrs if discharged home RECALL: Colonoscopy Marsha Lyon MD eSigned: Marsha Lyon MD 07/25/2017 11:05 AM cc: PATIENT NAME: Barbara Bains MR#: [id number]
[2017-07-25 11:48] VITALS: BP 106/59; PULSE 68; RESP 16; TEMP 98.8; O2SAT 100
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
[2017-07-25] MEDS ORDERED: LACTCAP8 PO (13:26)
[2017-07-25] MEDS ORDERED: WHEA1POW13 PO (13:26)
--- NOTE | 2017-07-25 13:29 | HHI.DCPOC ---
Discharge Care Plan Diagnosis: (1) Rectal bleeding (2) Internal and external hemorrhoids without complication Goals to Promote Your Health * To prevent worsening of your condition and complications * To maintain your health at the optimal level Directions to Meet Your Goals Take your medications as prescribed Follow your dietary instruction Follow activity as directed Keep your appointments as scheduled Take your immunizations and boosters as scheduled If your symptoms worsen call your PCP, if no PCP go to Urgent Care Center or Emergency Room Smoking is Dangerous to Your Health. Avoid second hand smoke Call the 24-hour hour crisis hotline for domestic abuse at Marta Oshea PA-C Jul 25, 2017 13:29
--- NOTE | 2017-07-25 13:29 | HHI.DCPOC ---
Discharge Care Plan Diagnosis: (1) Rectal bleeding (2) Internal and external hemorrhoids without complication Goals to Promote Your Health * To prevent worsening of your condition and complications * To maintain your health at the optimal level Directions to Meet Your Goals Take your medications as prescribed Follow your dietary instruction Follow activity as directed Keep your appointments as scheduled Take your immunizations and boosters as scheduled If your symptoms worsen call your PCP, if no PCP go to Urgent Care Center or Emergency Room Smoking is Dangerous to Your Health. Avoid second hand smoke Call the 24-hour hour crisis hotline for domestic abuse at Marta Oshea PA-C Jul 25, 2017 13:29
--- NOTE | 2017-07-25 13:29 | HHI.DCPOC ---
Discharge Care Plan Diagnosis: (1) Rectal bleeding (2) Internal and external hemorrhoids without complication Goals to Promote Your Health * To prevent worsening of your condition and complications * To maintain your health at the optimal level Directions to Meet Your Goals Take your medications as prescribed Follow your dietary instruction Follow activity as directed Keep your appointments as scheduled Take your immunizations and boosters as scheduled If your symptoms worsen call your PCP, if no PCP go to Urgent Care Center or Emergency Room Smoking is Dangerous to Your Health. Avoid second hand smoke Call the 24-hour hour crisis hotline for domestic abuse at Marta Oshea PA-C Jul 25, 2017 13:29
[2017-07-25] MEDS ORDERED: APIX2.5T PO (13:31)
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
[2017-07-25] MEDS ORDERED: APIXABAN 2.5 MG TABLET PO SCH (21:00)
== END 2017-07-25 15:20 | disposition home or self-care (01) ==
LOC: NEPE 20:56 → NEDA 23:44 → NEPGCP 07-22 00:52
PROVIDERS: ADMIT Hospitalist; ATTEND Hospitalist
DX: K64.8 Other hemorrhoids (principal); K64.4 Residual hemorrhoidal skin tags; K52.9 Noninfective gastroenteritis and colitis, unspecified; I82.401 Acute embolism and thrombosis of unspecified deep veins of right lower extremity; Q79.6 Ehlers-Danlos syndromes; D62 Acute posthemorrhagic anemia; J45.909 Unspecified asthma, uncomplicated; B34.9 Viral infection, unspecified; G89.29 Other chronic pain; Z86.711 Personal history of pulmonary embolism; Z79.01 Long term (current) use of anticoagulants; Z91.81 History of falling
CPT/HCPCS: 00810; 45380; 74177; 80048; 80053; 81001; 83690; 83735; 84702; 85014; 85018; 85025; 85610; 85730; 87205; 87493; 87506; 88305; 96360; 96361; 99285; G0378; J7030; J7120; Q9963; Q9967